=== PATIENT | female | born 1970 | race Caucasian/White ===

== ENCOUNTER → 2016-12-01 | Outpatient (CLI) | payer OTHER ==
--- NOTE | 2016-12-02 10:09 | KCIC ---
PROCEDURE MR of the right shoulder HISTORY Right shoulder pain. Injury November 15. COMPARISON None TECHNIQUE Routine multiplanar sequences are obtained. FINDINGS Acromioclavicular joint is intact. No rotator cuff tear. No significant subdeltoid bursal fluid. No significant joint effusion. Ill-defined signal within the superior labrum compatible with degeneration. There is also some mild linear signal at the posterosuperior labrum, at 10-11 o'clock, suspicious for a small tear. Biceps tendon intact. Small intraosseous cysts at the posterior greater tuberosity. No aggressive bone destruction or significant bone lesion. Mild bone marrow edema within the base of the coracoid process, particularly along its inferior aspect, without associated acute macro fracture. No acute muscle pathology. IMPRESSION 1. Findings suspicious for a small tear at the posterosuperior labrum. 2. No evidence of rotator cuff tear. 3. Mild marrow edema within the coracoid process.. No associated macro fracture or aggressive bone destruction. Possibilities include a stress reaction or posttraumatic contusion. Electronically signed by: Danny Rodgers MD (December 02, 2016 10:07:09)
== END | disposition home or self-care (01) ==
LOC: MRI 15:07
DX: M25.511 Pain in right shoulder (principal)
CPT/HCPCS: 73221